=== PATIENT | female | born 1950 | race Caucasian/White ===

== ENCOUNTER 2016-07-16 14:39 | Emergency (ER) | payer MEDICARE, OTHER ==
--- OUTSIDE RECORDS SUMMARY | 2016-07-16 14:56 | XMS REPORT | Continuity of Care Document ---
:1950 Author Organization [facility] [place] [address] Care Team Providers Name Role Phone Deb Crowe Alonzo Primary Care Provider [phone] Source Comments This disclosure is being made pursuant to the NetDocuments program and may contain all information available regarding this patient.[facility] Active Allergies and Adverse Reactions Allergen Noted Date Severity Reactions Comments Penicillins 06/23/2016 Unknown Current Medications Be aware that medications may not be up to date as of this document. Alwaysverify current medications with the patient. Prescription Sig. Disp. Refills Start Date End Date Status fluoxetine (PROZAC) Take 40 mg by Active 40 MG capsule mouth daily. alendronate (FOSAMAX) Take 70 mg by Active 70 MG tablet mouth every 7 days. lacosamide (VIMPAT) Take 100 mg by Active 100 MG TABS tablet mouth 2 (two) times daily. celecoxib (CELEBREX) Take 200 mg by Active 200 MG capsule mouth 2 (two) times daily. levETIRAcetam Take 1,000 mg Active (KEPPRA) 500 MG by mouth 2 tablet (two) times daily. aspirin 325 MG tablet Take 325 mg by Active mouth daily. lovastatin (MEVACOR) Take 40 mg by Active 40 MG tablet mouth nightly. benzonatate (TESSALON Take 1 capsule 30 capsule 0 06/23/2016 Active PERLES) 100 MG by mouth every capsule 6 (six) hours as needed for Cough. ciprofloxacin (CIPRO) Take 1 tablet 20 tablet 0 06/23/2016 07/03/2016 500 MG tablet by mouth 2 (two) times daily. Active Problems Not on file Most Recent Encounters Date Type Specialty Providers Description 06/23/2016 Office Visit Family Medicine Agata Jennings, Urinary frequency [employer] (Primary Dx); Acute upper respiratory infection; Acute cystitis without hematuria Social History Tobacco Use Types Packs/Day Years Used Date Never Smoker Smokeless Tobacco: Never Used Alcohol Use Drinks/Week oz/Week Comments No Last Filed Vital Signs Vital Sign Reading Time Taken Blood Pressure 134/84 06/23/2016 11:28 AM CDT Pulse 66 06/23/2016 11:28 AM CDT Temperature 36.6 C (97.8 F) 06/23/2016 11:28 AM CDT Respiratory Rate 16 06/23/2016 11:28 AM CDT Height 1.499 m (4' 11") 06/23/2016 11:28 AM CDT Weight 67.042 kg (147 lb 12.8 oz) 06/23/2016 11:28 AM CDT Body Mass Index 29.84 06/23/2016 11:28 AM CDT Oxygen Saturation 94% 06/23/2016 11:28 AM CDT Plan of Care Health Maintenance Due Date Last Done Comments Hepatitis C Screening 1966 Tetanus/Pertussis (1 - Tdap) 1967 Colonoscopy 1998 Mammogram 1998 Well Adult Visit 1998 Zoster Vaccine 60+ 2008 Bone Density 2013 Pneumococcal Low/Medium Risk 65+ (1 of 2 - PCV13) 2013 Influenza Immunization (#1) 2015 Results from Last 3 Months POCT UA (06/23/2016) Component Value Range Color, UA yellow colorless, yellow Clarity or appearance, UA cloudy(A) clear Glucose, UA negative negative mg/dL Bilirubin, UA negative negative, trace Ketones, UA negative negative, trace Specific [place],UA POC 1.025 1.003-1.029 Blood, UA moderate (2+)(A) negative pH, UA POC 5.0 5.0-8.5 Protein, UA POC 30 (1+)(A) negative Urobilinogen, UA POC 0.2 0.20-1.00 mg/dL Nitrite POC Negative Negative, Indeterminate Leukocytes, UA small (1+)(A) negative, trace
--- OUTSIDE RECORDS SUMMARY | 2016-07-16 14:56 | XMS REPORT | Continuity of Care Document ---
:1950 Author Organization [facility] ([facility]) Address [place] [address] Phone [phone] Care Team Providers Name Role Phone Deb Crowe Primary Care Provider [phone] Source Comments This disclosure is being made pursuant to the Care Everywhere program, applicable federal and state laws, and may not contain all informaitonavailable regarding this patient.[facility] ([facility]) Active Allergies and Adverse Reactions Allergen Noted Date Severity Reactions Comments Cephalosporins 08/21/2012 Rash Cotrim Double-Strength 01/24/2016 Low OTHER Penicillins 12/04/2012 Urticaria (Hives) Current Medications Prescription Sig. Disp. Refills Start Date End Date Status alendronate 70 mg Take 70 mg by Active tablet mouth every week. aspirin-acetaminophen- Take 2 Tabs by Active caffeine (MIGRAINE mouth every 4 RELIEF) 250-250-65 mg hours as needed. per tablet Indications: MIGRAINE folic acid 1 mg tablet Take 1 mg by Active mouth daily. Indications: Supplement melatonin 5 mg tablet Take 5 mg by Active mouth at bedtime. atorvastatin 10 mg Take 10 mg by Active tablet mouth every evening omeprazole 40 mg Take 40 mg by Active enteric coated capsule mouth daily levothyroxine 50 mcg Take 50 mcg by 01/07/2016 Active tablet mouth every morning before breakfast. artificial tears Instill 2 Drops Active (SYSTANE GEL) 0.3 % onto both eyes as ophthalmic gel needed. cholecalciferol Take 1,000 Units Active (VITAMIN D3) 1,000 by mouth daily. unit tablet cranberry 500 mg Take 500 mg by Active capsule mouth daily. cyanocobalamin Take 500 mcg by Active (VITAMIN B-12) 500 mcg mouth daily. tablet docusate 100 mg Take 100 mg by Active capsule mouth 2 times daily. HYDROcodone-acetaminop Take 1 tablet by 10 tablet 0 01/25/2016 Active hen 2.5-325 mg per mouth every 6 tablet hours as needed for Pain. warfarin 5 mg tablet Take 1 tablet (5 60 tablet 2 01/27/2016 Active mg total) by mouth daily. lacosamide (VIMPAT) Take a 200 mg tab 60 tablet 5 02/23/2016 Active 200 mg tablet along with a 100 mg tab for total of 300 mg BID lacosamide (VIMPAT) Take 100 mg tab 60 tablet 5 02/23/2016 Active 100 mg tablet along with a 200 mg tab BID for a total of 300 mg BID warfarin 1 mg tablet as instructed. 03/22/2016 Active warfarin 4 mg tablet as instructed. 03/22/2016 Active levETIRAcetam 500 mg Take 2.5 tablets 150 tablet 4 05/25/2016 Active tablet (1,250 mg total) by mouth 2 times daily. Active Problems Problem Noted Date Sick sinus syndrome 01/24/2016 Sinus pause- 3.9 second pause noted on Loop Recorder 01/24/2016 Episodic lightheadedness 01/24/2016 Cardiac pacemaker in situ - Engage Mobility 01/24/2016 Visual field defect 01/11/2016 Occipital stroke 01/10/2016 Aftercare following surgery for injury or trauma 05/26/2013 Other closed fractures of distal end of radius (alone) 02/18/2013 Follow-up exam 12/23/2012 Iron deficiency anemia 12/11/2012 Anemia 12/10/2012 Open fracture of left olecranon 12/10/2012 Fracture of left distal radius 12/10/2012 Fracture of patella, right, closed 12/10/2012 Seizure 12/08/2012 Elbow fracture, left 12/07/2012 Fall down steps 12/07/2012 Fracture of distal humerus 12/07/2012 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, with intractable epilepsy Resolved Problems Problem Noted Date Resolved Date Hypokalemia 12/08/2012 12/11/2012 Most Recent Encounters Date Type Specialty Providers Description 05/24/2016 Refill Neurology Mervin Lugo, Dx: Seizure disorder (Primary Dx) 04/30/2016 Office Visit Heart and Vascular Lexx Whiteside MD Dx: SSS ( sick sinus syndrome) (Primary Dx) 04/30/2016 Hospital Encounter Heart and Vascular Default, Other Chief Comp : Patient Billg - Defo Reported Reason For Lexx Whiteside MD Visit 04/30/2016 Office Visit Heart and Vascular Lexx Whiteside MD Chief Comp: Patient Reported Reason For Visit Immunizations Name Dates Previously Given Next Due Influenza, unspecified 12/28/2012,02/10/2007 Pneumococcal, unspecified 02/10/2007 Tdap 06/02/2009 Social History Tobacco Use Types Packs/Day Years Used Date Never Smoker Smokeless Tobacco: Never Used Tobacco Cessation:Counseling Given: Yes Comments: Last Filed Vital Signs Vital Sign Reading Time Taken Blood Pressure 137/73 04/30/2016 1:42 PM [employer]CH Pulse 59 04/30/2016 1:42 PM [employer] Temperature 36.9 C (98.4 F) 01/25/2016 6:59 AM [employer] Respiratory Rate 18 01/25/2016 6:59 AM [employer] Height 1.499 m (4' 11.02") 04/13/2016 3:23 PM [employer] Weight 67 kg (147 lb 11.3 oz) 04/13/2016 3:23 PM [employer] Body Mass Index 29.82 04/13/2016 3:23 PM [employer] Oxygen Saturation 98% 04/13/2016 3:23 PM [employer] Plan of Care Date Type Specialty Providers Description 08/28/2016 Appointment Neurology Mervin Lugo MD Chief Comp: Patient [address] [place] [address] Visit [phone] (Fax) 10/29/2016 Appointment Heart and Vascular Lexx Whiteside MD Chief Comp: Patient [address] [place] [address] Visit [phone] (Fax) 10/29/2016 Appointment Heart and Vascular Lexx Whiteside MD Chief Comp: Patient [address] [place] [address] Visit [phone] (Fax) Health Maintenance Due Date Last Done Comments HCV Screening 1950 Hepatitis B Vaccine (1 of 3 - Primary 1950 Series) Lipid Disorder Screening 1966 Mammogram 1988 Colonoscopy 1998 Zoster Vaccine 2008 Pneumococcal Vaccine (1 of 2 - PCV13) 2013 Influenza Vaccine: Seasonal (Season Ended) 2016 12/28/2012, 02/10/2007 Td Vaccine 06/03/2019 06/02/2009 Tdap Vaccine Completed 06/02/2009 Osteoporosis Screening (DXA Bone Density) Completed 12/24/2012 Results from Last 3 Months ECG - EKG 12 LEAD (04/30/2016 2:15 PM) Component Value Range ECG SEVERITY - ABNORMAL ECG - VENT. RATE 79 bpm RR 759 ms P-R INTERVAL 232 ms QRSD INTERVAL 96 ms QT INTERVAL 396 ms QTC INTERVAL 455 ms QRS AXIS 30 degrees T WAVE AXIS 106 degrees REPORT ATRIAL-PACED COMPLEXES [Remains] FIRST DEGREE AV BLOCK [Insig. Chg.] NONSPECIFIC T ABNORMALITIES, LATERAL LEADS [Remains] NO SIGNIFICANT CHANGE Interpreting Physician: Shayne Buckner MD
[2016-07-16 15:36] LABS: Prothrombin Time (Patient) 20.9 Seconds (9.4-11.4)
[2016-07-16 15:40] LABS: INR 2.01 INR (0.90-1.10)
[2016-07-16] MEDS ORDERED: ACETAMINOPHEN 500 MG TABLET PO ONE (16:23)
[2016-07-16 16:46] LABS: Hematocrit 34.8 % (37.0-47.0); Hemoglobin 11.5 gm/dL (12.5-16.0); Mean Cell Volume 95.1 fl (78-100); Mean Corpuscular Hemoglobin 31.4 pg (27-31); Mean Platelet Volume 11.7 fl (6.0-9.5); Platelet Count 209 K/mm3 (150-450); Red Blood Count 3.66 M/mm3 (4.2-5.4); Red Cell Distribution Width 13.4 % (11.5-14.0); White Blood Count 6.3 K/mm3 (4.0-10.5)
[2016-07-16 16:55] LABS: Albumin * 3.8 gm/dl (3.4-5.0); Anion Gap 13.2 mmol/L (6.8-13.8); BUN/Creatinine Ratio 13.6 (9.0-21.6); Bilirubin, Total 0.2 mg/dL (0.0-1.1); Ca. Corrected For Albumin 8.4 mg/dL (8.4-10.2); Calcium * 8.6 mg/dL (7.9-10.9); Carbon Dioxide 26.6 mmol/L (24-32.6); Potassium 3.8 mmol/L (3.4-4.6); Total Protein 7.8 gm/dL (6.2-8.2)
--- NOTE | 2016-07-16 17:39 | ERNOTE ---
Lower Extremity HPI - Narrative Date of Service: 07/16/16 - General Lower Extremities Pain: knee: right - tender Time Seen by Provider: 07/16/16 14:47 Source: patient, family Exam Limitations: no limitations, dementia - Immun/Allergies/Home Medications Immunizations: IMMUNIZATION HX Immunizations Up to Date Yes History of Influenza Vaccine Yes Hx Pneumococcal Vaccination No Allergies/Adverse Reactions: Allergies Allergy/AdvReac Type Severity Reaction Status Date / Time Penicillins Allergy Mild Hives Verified 07/16/16 14:46 sulfamethoxazole Allergy Mild SEIZURE Verified 07/16/16 14:46 [From Bactrim DS] trimethoprim Allergy Mild SEIZURE Verified 07/16/16 14:46 [From Bactrim DS] levofloxacin [From Levaquin] Allergy Unknown Verified 07/16/16 14:46 phenobarbital Allergy Unknown Verified 07/16/16 14:46 Home Medications: HOME MEDICATIONS Albuterol Sulfate [Proair Hfa] 1 - 2 puff IH Q4H PRN 03/07/15 [Last Taken Unknown] Alendronate Sodium [Fosamax] 70 mg PO Q7D 03/07/15 [Last Taken Unknown] Aspirin 325 mg PO DAILY 03/07/15 [Last Taken Unknown] Atorvastatin Calcium 10 mg PO DAILY 03/07/15 [Last Taken Unknown] Cholecalciferol (Vitamin D3) [Vitamin D3] 2,000 unit PO DAILY 03/07/15 [Last Taken Unknown] Cyanocobalamin [Vitamin B-12] 1,000 mcg PO DAILY 03/07/15 [Last Taken Unknown] Docusate Sodium [Doc-Q-Lace] 100 mg PO BID 03/07/15 [Last Taken Unknown] Folic Acid 1 mg PO DAILY 03/07/15 [Last Taken Unknown] Lacosamide [Vimpat] 200 mg PO BID 03/07/15 [Last Taken Unknown] Omeprazole [Prilosec] 40 mg PO DAILY 03/07/15 [Last Taken Unknown] Polyethylene Glycol 3350 [Miralax] 17 gm PO DAILY PRN 03/07/15 [Last Taken Unknown] Propylene Glycol/Peg 400/Pf [Systane 0.3-0.4% Eye Drops] 1 each OP QID 03/07/15 [Last Taken Unknown] Cyclobenzaprine HCl [Flexeril] 10 mg PO TID PRN 06/13/15 [Last Taken Unknown] HYDROcodone/ACETAMINOPHEN [Lortab 5-325 mg Tablet] 1 each PO Q6H PRN 06/13/15 [ Last Taken Unknown] Melatonin/Pyridoxine HCl (B6) [Melatonin 5 mg Tablet] 1 each PO HS 06/13/15 [ Last Taken Unknown] Multivitamins [Multivitamin Rosalino] 1 cap PO DAILY 06/13/15 [Last Taken Unknown] levETIRAcetam [Keppra] 1,250 mg PO BID 06/13/15 [Last Taken Unknown] oxyCODONE HCL/ACETAMINOPHEN [Percocet 5 MG/325 MG] 1 - 2 tab PO Q4H PRN #30 tab 06/17/15 [Last Taken Unknown] - History of Present Illness Narrative: Old female presenting to the emergency room for right knee pain. Patient states home health nurse suggested she come here after patient complained of right knee pain and that she had a positive Homans sign. patient has dementia and dept of verbal exam was limited. Date (Duration): 07/16/16 Occurred: this morning Location of Incident: home Method of Injury: Reports: unknown Loss of Consciousness: Reports: no loss of consciousness Modifying Factors - (Improves): Reports: immobilization Modifying Factors - (Worsens): Reports: movement Associated Symptoms: Denies: headache, weakness, chest pain, vomiting/diarrhea Other Injuries: Reports: none Subsequent Symptoms: Denies: sensory loss, numbness, motor loss, bowel/bladder problem Review of Systems - Narrative Narrative: patient states that her right leg is bigger than her left. i do not observe this and neither do her family. - Review of Systems Constitutional: Present: no symptoms reported. Absent: fever EYE: Present: no symptoms reported ENT: Present: no symptoms reported Respiratory: Present: no symptoms reported. Absent: shortness of breath Cardiology: Present: no symptoms reported. Absent: chest pain Gastrointestinal/Abdominal: Present: no symptoms reported Genitourinary: Present: no symptoms reported Musculoskeletal: Present: See HPI, joint swelling Skin: Present: no symptoms reported Neurological: Present: no symptoms reported Endocrine: Present: no symptoms reported Hematologic/Lymphatic: Present: no symptoms reported Psych: Present: no symptoms reported - Patient's Past Medical History Patient History - Medical: Anxiety, Depression, GERD, Hypothyroidism, Osteoporosis, Seizures, Other - dementia Patient History - Cardiac/Respiratory: Asthma, Hyperlipidemia, Other Patient History - Cancer: No Hx of Cancer Patient History - Surgical Procedures: Cholecystectomy, , Other Patient History - Other: None, Other - Family History Mother Family History - Medical: Father Family History - Medical: - Social History Living Situations: home Abuse History: No History of abuse Psych History: Hx of Anxiety, Hx of Depression Alcohol Use: none Drug Use: none - Immunizations Immunizations Up to Date: Yes Hx Pneumococcal Vaccination: No History of Influenza Vaccine: Yes Physical Exam - Physical Exam Narrative: patient right knee cap is tender. patient has good ROM. swelling around right knee. patient has pain to leg/knee with pointing and flexing her right foot. General Appearance: Present: wd/wn, alert, no apparent distress Eye Exam: Normal inspection: bilateral Ears, Nose, Throat: Present: normal ENT inspection Neck: Present: normal inspection Respiratory: Present: no respiratory distress, normal breath sounds, chest nontender, lungs clear. Absent: respiratory distress Cardiovascular/Chest: Present: regular rate, rhythm, no murmur, normal peripheral pulses Peripheral Pulses: N=norm/S=strong/W=weak/B=bound/A=absent: Radial (R): Normal, Radial (L): Normal, Dorsalis-pedis (R): Normal, Dorsalis-pedis (L): Normal Gastrointestinal/Abdominal: Present: normal bowel sounds, nontender. Absent: tenderness Back Exam: Present: normal inspection, normal range of motion, no vertebral tenderness Extremity Exam: Present: normal inspection, normal except - - right knee pain and swelling, normal range of motion Neurological Exam: Present: alert, oriented, normal mood/affect, no motor/ sensory deficits Skin Exam: Present: normal color, warm/dry Lymphatic Exam: Present: no adenopathy ED Progress - Results and Orders Patient's Lab Results:: I have reviewed the patient's lab results. Results and Orders: no acute process - Vital Signs Vital Signs: Vital Signs 07/16/16 07/16/16 07/16/16 14:42 15:55 17:05 Temperature 36.1 C L 36.4 C L 36.1 C L Pulse Rate 60 70 73 Respiratory 12 14 14 Rate Blood Pressure 124/46 125/73 134/79 O2 Sat by Pulse 96 100 100 Oximetry - X-Ray X-Ray #1 X-Ray: knee Interpretation: Reviewed by me X-ray Comments: History: pain. Additional history provided by the technologist: Hit knee on car door. Pain and swelling. Technique: Right knee series (3 views) Comparison:None. Findings: No acute fracture or dislocation. Alignment is anatomic. Decreased osseous mineralization. Minimal tricompartmental degenerative changes. No destructive osseous lesions. There is a moderate suprapatellar joint effusion. Soft tissue swelling noted. Impression: No acute osseous findings. Additional findings and comments are as above. Electronically signed by Yoav Salgado D.O.. - Progress/Reassessment Chief Complaint: Lower Extremity Pain/ Injury Progress:: Unchanged Plan - Plan Plan: patient is to follow up with PCP r/t knee pain and swelling for possible MRI. Departure Clinical Impression: Knee pain, right Qualifiers: Chronicity: acute Qualified Code(s): M25.561 - Pain in right knee - Departure Disposition: Home Follow Up Needed Condition: Stable Instructions: Knee Pain, RICE for Routine Care of Injuries, [id number], Joint Pain, [id number] Additional Instructions: Urinary previous home medications as directed. Return to emergency room if his symptoms involve her pain is not able to be controlled with your over-the- counter pain medications. Follow-up through primary care physician in the next few days regarding x-ray results. Referrals: Deb Crowe DO [Primary Care Provider] -
[2016-07-16 17:42] VITALS: BP 128/77
== END 2016-07-16 17:44 | disposition home or self-care (01) ==
LOC: ER 14:39
DX: M25.561 Pain in right knee (principal); F41.8 Other specified anxiety disorders; K21.9 Gastro-esophageal reflux disease without esophagitis; E03.9 Hypothyroidism, unspecified; E78.5 Hyperlipidemia, unspecified; G40.409 Other generalized epilepsy and epileptic syndromes, not intractable, without status epilepticus